=== PATIENT | male | born 1995 | race Caucasian/White ===

== ENCOUNTER 2020-11-27 13:55 | Emergency (ER) | payer OTHER ==
[~2020-11-27] VITALS: Ht 180.3 cm; Wt 113.4 kg
[~2020-11-27 13:55] MED LIST: IBUPROFEN 800800 M1 PO; OXCARBAZEPINE150 MG; TOPIRAMATE 100100 MG
[2020-11-27] MEDS ORDERED: CEPHALEXIN500 MG PO (14:37)
[2020-11-27 15:13] VITALS: BP 125/65
== END 2020-11-27 15:14 | disposition home or self-care (01) ==
LOC: M.ERS 13:55
DX: S61.211A Laceration without foreign body of left index finger without damage to nail, initial encounter (principal); S61.012A Laceration without foreign body of left thumb without damage to nail, initial encounter; W45.8XXA Other foreign body or object entering through skin, initial encounter; Y93.89 Activity, other specified; Y92.89 Other specified places as the place of occurrence of the external cause; Y99.8 Other external cause status